=== PATIENT | female | born 1945 | race Caucasian/White ===

== ENCOUNTER → 2019-03-09 13:34 | Outpatient (CLI) | payer MEDICARE, SELFPAY ==
--- NOTE | 2019-03-09 | DI.CT.S_ITS ---
PROCEDURE: CT UE LT WO CON INDICATIONS: Primary osteoarthritis, left shoulder TECHNIQUE: Noncontrast 1-1.5 mm thick sections acquired from the acromioclavicular joint to the inferior scapula, with coronal and sagittal reformatting. COMPARISON: None. FINDINGS: Image quality: Excellent. Bones: Examination of left shoulder shows moderate to severe glenohumeral joint osteoarthritis with near-complete loss of joint space, extensive subchondral cysts and sclerosis and prominent inferior marginal osteophyte formation. Mild to moderate glenohumeral joint osteoarthritic changes are also seen. There is no shoulder fracture or dislocation. No suspicious intraosseous lesion. Visualized left upper to mid ribs are intact. Soft tissues: There is no abnormal soft tissue calcifications. No gross axillary lymphadenopathy. Small glenohumeral joint effusion is seen. No gross full-thickness rotator cuff tendon rupture. IMPRESSION: 1. Moderate to severe glenohumeral joint osteoarthritis and mild to moderate acromioclavicular joint osteophytes. No fracture or dislocation. No suspicious bony lesion. 2. Small joint effusion. No gross full-thickness rotator cuff tendon rupture. Dictated by: Montana Vazquez M.D. on 03/09/2019 at 15:26 Approved by: Montana Vazquez M.D. on 03/09/2019 at 15:28
== END ==
PROVIDERS: Visit Provider Orthopaedic Surgery
DX: M19.012 Primary osteoarthritis, left shoulder (principal); M25.412 Effusion, left shoulder
CPT/HCPCS: 73200

== ENCOUNTER 2019-06-18 05:44 | Inpatient (IN) | payer MEDICARE, SELFPAY ==
[2019-06-12 10:00] VITALS: BMI 27.0
[2019-06-18] VITALS (21 sets, daily range): BP systolic 80–116; BP diastolic 42–63; PULSE 75–103; RESP 10–25; TEMP 36.1–37.2; O2SAT 94–100; BMI 27.2
--- NOTE | 2019-06-18 06:00 | DI.RAD.S_ITS ---
PROCEDURE: XR SHOULDER LT 1V INDICATIONS: post op TECHNIQUE: Single views of the shoulder were acquired. COMPARISON: None. FINDINGS: Expected alignment of left shoulder arthroplasty. Overlying soft tissue postsurgical changes, and drain. Hardware appears intact. IMPRESSION: Expected postsurgical appearance Dictated by: Jamison Bardales M.D. on 06/18/2019 at 13:31 Approved by: Jamison Bardales M.D. on 06/18/2019 at 13:32
[2019-06-18] MEDS: PREGABALIN 75 MG CAPSULE PO (07:07)
[2019-06-18] MEDS: ACETAMINOPHEN 325 MG TABLET 975 MG PO ×3 (07:07→20:39)
--- NOTE | 2019-06-18 07:35 | PM.PREOP ---
Pre-operative Note Interval Note History & Physical reviewed/Exam performed by Physician: Yes Changes to H&P: No
[2019-06-18] MEDS: LACTATED RINGERS 1,000 ML 42 ML IV ×2 (07:55→09:20)
[2019-06-18] MEDS: MIDAZOLAM 2 MG/2 ML VIAL IV (07:59)
--- NOTE | 2019-06-18 08:09 | SUR.PREOP ---
Block start time [0759] . Monitoring initiated and maintained throughout procedure. Oxygen and medications given per anesthesiologist instructions. Patient remained stable throughout procedure, no adverse reactions noted. Block end time [0808].
[2019-06-18] MEDS: CEFAZOLIN 2 GM/100 ML FROZ.PIGGY IV (08:14)
[2019-06-18] MEDS: TRANEXAMIC ACID 1,000 MG VIAL 2000 MG INJ ×2 (08:30→09:33)
--- NOTE | 2019-06-18 08:42 | SUR.OPER ---
Beach chair with Rogelion/Milagros shoulder positioner. Lower body on padded OR bed. Head in foam padded head cradle, secured with straps. Non-operative arm secured <90 degrees abduction. Pillow under knees. Safety belt at thigh. Cloth tape over blanket over lower legs. Gel pad under heels.
[2019-06-18] MEDS: THROMBIN (RECOMBINANT) 5,000 UNIT VIAL 5000 UNIT TOP (09:00)
[2019-06-18] MEDS: BUPIVACAINE 0.5% W/ EPI (PF) 10 ML VIAL 30 ML INJ (09:12)
--- NOTE | 2019-06-18 10:13 | P.OP_ITS ---
Operative Date/Time/Diagnoses Date of procedure: 06/18/19 Time of procedure: 09:50 Pre-op diagnosis: Left shoulder osteoarthritis Post-op diagnosis: same Procedure & Clinicians Procedure: Left total shoulder replacement Same procedure as scheduled: Yes Indications: The patient has had progressively worsening left shoulder pain with radiographic changes consistent with arthritis. Non-operative management has failed and the patient has requested total shoulder replacement. The risks, benefits and alternatives to surgery were discussed with the patient prior to proceeding. Risks discussed included, but were not limited to, failure to relieve pain, stiffness, infection, nerve damage, deep venous thrombosis, pulmonary embolism, stroke, coma, heart attack, permanent paralysis and , as well as the potential need for eventual revision of the prosthetic. Surgeon: Domingo Sanchez Learning Operations Specialist: Ck Hoang Click Yes if Unassisted: No Anesthesia Type: General, Peripheral nerve block and Local Operative Notes Findings: Severe arthritis of the left shoulder with cystic change in the subchondral bone of the glenoid and osteoporotic bone. Closure Type: primary Specimen(s): none sent Prosthetic devices, grafts, tissues, transplants, or devices: Implants used in this procedure were manufactured by the [employer] and included an Altivate short stem total shoulder system with a size 46 mm pegged all polyethylene E plus glenoid, a 12 mm humeral stem, a 48 mm x 18 mm offset humeral head and a neutral humeral neck. Applied: implant(s) Estimated Blood Loss (mL): 250 Blood products transfused: none Procedure in detail: The patient was seen in the pre-operative area, where the patient identified the left shoulder as the operative site and this was marked with my initials. The patient received pre-operative antibiotics, underwent an interscalene block, and was taken to the operating room and placed on the operative table in the supine position. After satisfactory anesthesia, a full ?time out? was performed. The patient was repositioned in the ?beach chair? position using a dedicated positioner. All pressure points were well padded, and the knees were slightly bent to prevent tension on the sciatic nerves. The left arm was prepared from the fingers to the base of the neck with ChloroPrep in the usual fashion and draped through sterile drapes. An approximately 15 cm incision was created, starting at the clavicle above the coracoid process and extended towards the deltoid insertion. The deltopectoral interval was used to access the shoulder. The cephalic vein was taken medially. A self retaining retractor was placed. The upper centimeter of the pectoralis major tendon was released. The ?three sisters? were identified and cauterized. The axillary nerve was palpated and protected throughout the case. The biceps was released from its groove and tenodesed over the top of the pectoralis major tendon. The subscapularis was released from the lesser tuberosity with a subscapularis peel and tagged for later repair. The shoulder was dislocated and a cutting guide was used for the proximal humeral osteotomy in 30 degrees of retroversion. A starter reamer was used followed by the cylindrical reamers. This continued in larger sizes in till cortical bite was achieved. Sequential broaching was then performed until a line to line fit with the reamer occurred. A proximal humeral protector was then placed. We then removed the self-retaining retractor and placed retractors to access the glenoid. The subscapularis was released with a ?360 degree release? with care being taken to protect the axillary nerve with the inferior portion of this procedure. The remnant of labrum and biceps stump were removed. The appropriate size reamer was chosen with the glenoid sizer, and the guide pin placed. The glenoid was appropriately reamed. The guide for the peripheral holes was used and the center hole enlarged. The trial glenoid was placed with good stability. We then cemented the final implant into place after irrigating the peg holes and drying them with thrombin-soaked Gelfoam. We returned our attention to the humerus, a trial humeral head was applied and a trial reduction performed. Stability was checked with 40% posterior translation with spontaneous reduction, external rotation to 45? with the subscapularis held in the repaired position and internal rotation to 70? in the ?scarecrow position?. This was felt to be satisfactory and the appropriate implants were opened. Five holes were drilled along the humeral osteotomy and #2 Ethibond sutures placed for eventual subscapularis repair. The humeral prosthetic was impacted into the humerus. The humeral head was applied when the stem was still slightly proud and impacted to both seat the head and fully seat the stem. The joint was relocated one final time. The joint was irrigated and the subscapularis repaired to the previously placed sutures using Parrish-Walter sutures. The top of the subscapularis was closed to the leading edge of the supraspinatus with a figure of 8 #2 Ethibond to close the rotator interval. A deep drain was placed and brought out supero-laterally. The deltopectoral interval was closed with interrupted 0 Vicryl. The subcutaneous layer was closed with 3-0 Vicryl, and the skin with a running 3-0 V-Lock suture and SteriStrips. An Aquacel Ag dressing was applied, the patient?s arm was placed in a sling, and the patient was taken to recovery having tolerated the procedure well. Complications: none Post-operative Condition: stable Disposition: PACU Plan for aftercare: The patient will be maintained on a standard total shoulder replacement protocol with passive range of motion limited to 90 degrees forward flexion, 0 degrees external rotation at the side, 0 degrees abduction and internal rotation to the body. The patient will receive aspirin and sequential compression devices for DVT prophylaxis. The patient will be discharged home when safe for the home environment, likely tomorrow.
--- NOTE | 2019-06-18 11:24 | SUR.PHASEI ---
pt transferred to acute care floor in stable condition, vss. pt alert and talking to rn during transport. Bedside report given to KATIUSKA Thakur upon arrival to pt room. Transferred care of pt to KATIUSKA Thakur at that time.
[2019-06-18] MEDS: CARBIDOPA-LEVODOPA 25/100 TABLET 1 EACH PO ×2 (11:47→18:40)
[2019-06-18] MEDS: LACTATED RINGERS 1,000 ML 125 ML IV ×2 (12:35→20:39)
--- NOTE | 2019-06-18 14:30 | PT.IIE ---
Current Diagnoses Primary osteoarthritis, left shoulder (06/18/19) Surgery Performed Operation Date: 06/18/19 07:45 Actual Procedures p Total Shoulder Arthroplasty(Left) - Domingo Sanchez MD Surgical History (Last Updated 06/13/19 @ 15:14 by Stacey Lucas RN) History of arthroplasty of right hip (Acute) History of bariatric surgery (Acute ~1999) History of bilateral cataract extraction (Acute) History of total hysterectomy with bilateral salpingo-oophorectomy (BSO) (Acute) Hx of appendectomy (Acute) Hx of cholecystectomy (Acute) Hx of lithotripsy (Acute) Hx of oral surgery (Acute) Hx of tonsillectomy (Acute) Medical History (Last Updated 06/13/19 @ 15:08 by Stacey Lucas RN) Abdominal hernia (Acute) Afib (Acute) Compression fracture of L1 vertebra (Acute) Diabetes (Acute) Easy bruisability (Acute) GERD (gastroesophageal reflux disease) (Acute) HTN (hypertension) (Acute) Kidney stones (Acute) Osteoarthritis (Acute) PAF (paroxysmal atrial fibrillation) (Acute ~03/2013) Parkinson's disease (Acute ~04/2019) Right femoral fracture (Acute ~2008) Right tibial fracture (Acute ~2006) Sleep apnea (Acute) Small bowel obstruction (Acute ~2017) Tinnitus (Acute) Physical Therapy Inpatient Evaluation/Re-Eval M1 PT/OT-IP Prior Functional Status Start: 06/18/19 12:21 Freq: NEEDED Status: Active Protocol: Document 06/18/19 14:25 [facility] (Rec: 06/18/19 19:14 [facility] [id number]) Medical Review Prior Functional Status Medical History Reviewed Yes Diet/Fluid Consistency Regular Communication WNL Mobility and Gait Pt was using cane to improve gait until franck started hurting last summer and couldn 't wt bear into LUE. Notes this makes her gait have more lat movemtn Activities of Daily Living and IADL's indep but does have someone come in to deep clean. Social History Household Members none Living Arrangements House Number of Floors (Floors) One Floor Number of Stairs To Enter/Railing? 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 (Rec: 06/18/19 19:14 [facility] [id number]) Physical Therapy Current Condition Current Condition Evaluation Date 06/18/19 Treatment Diagnosis L TSA Precautions Shoulder Precautions Sling,PROM,Internal Rotation to Body,No External Rotation, No Abduction,Forward Flexion to 90 degrees Weight Bearing Status Weight Bearing Status Non-Weight Bearing M3 PT-IP Subjective Start: 06/18/19 12:21 Freq: NEEDED Status: Active Protocol: Document 06/18/19 14:25 [facility] (Rec: 06/18/19 19:14 [facility] [id number]) Subjective Physical Therapy Visit Type Type Initial Evaluation Visit Start Time 13:52 Visit Stop Time 14:25 Total Visit Minutes 33 Number of EMOTIONAL SUPPORT TEACHER Visits 0 Therapy Pain Assessment Pain Present Pain Present Denied Pain Location LT shoulder Intensity 0 Scale Used Numeric (1 - 10) M4 PT-IP Mobility and Gait Start: 06/18/19 12:21 Freq: NEEDED Status: Active Protocol: Document 06/18/19 14:25 [facility] (Rec: 06/18/19 19:14 [facility] [id number]) PT-Bed Mobility Assessment Supine to Sit Supine to Sit Standby Assistance,Head of Bed Elevated Sit to Supine Sit to Supine Standby Assistance,Head of Bed Elevated Scooting Scooting to Edge of Bed Standby Assistance Scooting Up and Down in Bed Standby Assistance PT-Transfer Assessment Sit to and From Stand Sit to and from Stand Standby Assistance,Use of Upper Extremities Equipment Transfer Assistive Device Gait Belt Comments Mobility Comments Pt stood to amb. She stood for extended time for adjustment of sling. Pt edcuated on proper position and assisted in repositioning Gait Assessment Gait Gait Assistance Required: Standby Assistance Distance (Feet) 100 Assistive Devices Assistive Device Gait Belt Gait Deviations General Gait Pattern Decreased Stride Length, Lateral Trunk Lean Factors Limiting Gait Function Factors Limiting Gait Function Decreased Strength,Poor Balance Comments Gait Comments Pt has slight leg length discrepancy which was notable during gait. She was overall steady throughout amb in room but does have lat leaning during gait. PT-Balance Assessment Sitting Balance and Reactions Static Sitting Balance Ability Normal Dynamic Sitting Balance Ability Normal Standing Balance and Reactions Static Standing Balance Ability Fair Dynamic Standing Balance Ability Fair M5 PT-IP Objective Assessments Start: 06/18/19 12:21 Freq: NEEDED Status: Active Protocol: Document 06/18/19 14:25 [facility] (Rec: 06/18/19 19:14 [facility] [id number]) Orientation Orientation/Cognition Level of Alertness Alert Language Function Ability No Deficits Noted Safety Awareness Understands Safety Issues Memory Description No Deficits Noted Gross Range of Motion Upper Extremity ROM Assessment Left Impaired M6 PT-IP Treatment Start: 06/18/19 12:21 Freq: NEEDED Status: Active Protocol: Document 06/18/19 14:25 [facility] (Rec: 06/18/19 19:14 [facility] [id number]) Physical Therapy Treatment Education Education Provided Precautions,Safety M7 PT-IP Assessment and Plan Start: 06/18/19 12:21 Freq: NEEDED Status: Active Protocol: Document 06/18/19 14:25 [facility] (Rec: 06/18/19 19:14 [facility] [id number]) PT Summary Assessment and Plan Potential Rehabilitation Potential Excellent Status of Condition at Evaluation Evolving Summary Impairments Pain,ROM,Strength,Balance,Bed Mobility,Transfers,Gait, Activity Tolerance Assessment Summary Pt presents day of L TSA with no sensation to LUE yet. She prepared by practiving activiites with one arm at home prior to surgery and has ADA toilet set up. She has help from neighbors and friends set up and plans to go home indep. She was very motivated and cooperative with therapy and is likey to progress well in order to be safe to return home after further PT for education. Goals Bed Mobility Goal Independent Transfer Goal Independent Gait Goal Independent Gait Distance 150ft Other Goals up./down 12 stairs with rail SBA Days to Meet Goals 3 Frequency of Treatment Frequency Of Treatment Twice a Day Treatment Plan Physical Therapy Treatment Plan Bed Mobility Training,Transfer Training,Gait Training, Therapeutic Exercise,Balance Retraining,Post Op Education, Neuromuscular Re-ed Other Recommendations and Next Treatment stairs, functional amb, edu of Focus sling use Recommendations To Nursing Amount of Assist Needed Standby Assistance Discharge Recommendations PT Discharge Recommendations Home with Assistance, Outpatient PT Transportation Needs at Discharge Private Vehicle
[2019-06-18] MEDS: DOCUSATE 100 MG CAPSULE PO (20:39)
--- NOTE | 2019-06-18 22:37 | PC.NURSE ---
Patient A/Ox4, room air, no complaints of pain. Able to ambulate 1 person assist to bathroom. Tolerated dinner. Reports some acid reflux. Shoulder incision is original aquacel dressing, clean, dry and intact.
[2019-06-18] MEDS: OXYCODONE IR 10 MG TABLET PO (23:22)
[2019-06-19] MEDS: HYDROMORPHONE 0.5 MG INJ IV ×4 (00:08→05:55)
[2019-06-19] MEDS: OXYCODONE IR 10 MG TABLET PO ×3 (02:07→10:19)
[2019-06-19 03:25] VITALS: BP 122/60; PULSE 85; RESP 18; TEMP 37.2; O2SAT 99
--- NOTE | 2019-06-19 04:37 | PC.NURSE ---
Called Dr. Dobbins at [phone] due to patient condition. Patient has pain 7-9/10 after pain medication administration and is restless, stiff/rigid and unable to sleep. Dr. Dobbins stated to give the patient the ordered 0.5 Hydromorphone every hour as needed. No new medication orders given.
[2019-06-19 05:36] LABS: Hemoglobin 9.6 g/dL (12.0-16.0); Mean Corpuscular HGB Conc 33.2 % (30-36); Mean Corpuscular Hemoglobin 29.1 PG (26-34); Mean Corpuscular Volume 87.7 fL (80-100); Platelet Count 138 X10^3/uL (150-400); White Blood Cell Count 7.7 X10^3/uL (4.5-11.0)
[2019-06-19] MEDS: TRAMADOL 50 MG TABLET PO (06:39)
[2019-06-19] MEDS: CARBIDOPA-LEVODOPA 25/100 TABLET 1 EACH PO (06:39)
--- NOTE | 2019-06-19 07:38 | PM.DS.1 ---
History of Present Illness History of Present Illness Date Patient Seen: 06/19/19 Time Patient Seen: 07:38 Chief complaint: [id number] Left Total Shoulder Arthroplasty Narrative: The history and physical are contained in the chart in a previously completed note. Please refer to that note for this information. Discharge Providers Provider Date of admission: 06/18/19 05:44 Discharge Date: 06/19/19 Primary care physician: Dave Ralph MD Consults: 06/18/19 11:32 Consult to Discharge Planning Routine Comment: Consult to Physical Therapy Evaluate & Treat Comment: PROM 90 FF, 0 ER, 0 ABD, IR to body. Pendulums. Physician Instructions: Evaluate and Treat Discharge provider: Domingo Sanchez MD Summary Hospital Course Discharge Diagnosis: 1. Left shoulder arthritis 2. Post hemorrhagic anemia Hospital Course: The patient was admitted to the hospital and taken directly to the operating room on June 18, 2019. She underwent a left total shoulder replacement without complications. She had some difficulty with postoperative pain management overnight but on postoperative day 1 she appeared to be quite comfortable. It is likely she will be ready for discharge later today. Status at Discharge Cognitive/behavioral status at discharge: oriented Functional status at discharge: independent ambulation Overall status at discharge: patient is progressing back to baseline Time Spent with Patient Time spent: Less than 30 minutes Exam Vital Signs (past 8 hours): - 06/19/19 03:25 Temperature 98.9 F Pulse Rate 85 Respiratory Rate 18 Blood Pressure 122/60 Pulse Oximetry 99 Oxygen Delivery Method Room Air Oxygen Flow Rate 0 Narrative Exam Narrative: Left shoulder wound is dressed with no drainage on the bandage. Light touch is intact in the radial, ulnar, median, muscular cutaneous and axillary nerve distribution. She can extend her thumb, abduct her thumb, abduct her fingers, fire her biceps and deltoid. Objective Labs Result Diagrams: 06/19/19 05:12 Labs: Laboratory Results - last 24 hr 06/19/19 05:12 WBC 7.7 RBC 3.30 L Hgb 9.6 L Hct 29.0 L MCV 87.7 MCH 29.1 MCHC 33.2 RDW 14.0 Plt Count 138 L Discharge Plan Discharge Plan Patient Disposition: Home Discharge orders & Medications Prescriptions: New acetaminophen 325 mg Tablet 975 mg PO TID 30 Days Qty: 270 RF: 0 hydromorphone 2 mg Tablet 2 mg PO Q3H PRN (Reason: Pain, Severe (7-10)) Qty: 30 RF: 0 oxycodone 5 mg Tablet 5 mg PO Q4H PRN (Reason: Pain, Moderate (4-6)) Qty: 50 RF: 0 Continued tramadol 50 mg Tablet 50 mg PO QID PRN (Reason: Pain) RF: 0 carbidopa-levodopa 25-100 mg Tablet 1 tab PO TID RF: 0 Xarelto 20 mg Tablet 20 mg PO DAILY RF: 0 lisinopril 10 mg Tablet 10 mg PO BEDTIME RF: 0 Follow up/Referrals: Dave Ralph MD [Primary Care Provider] - Domingo Sanchez MD [Physician] - 2 Weeks Discharge Health Status Multidrug resistant organism: No MDRO Diet/Activity/Treatments Diet: Diet as Tolerated and Regular Activity: You may use your left hand in front of your body below shoulder level. Keep the arm in a sling except for hygiene, eating and use of a computer or reading. Cold/Heat Therapy: Apply ice to the left shoulder for 15 minutes every hour as needed for pain control. Skin/Wound/Dressing Care Report to your healthcare provider any signs of infection, such as:: chills, fever, night sweats, increased pain, unusual drainage and unusual redness Dressing: Leave the dressing intact until your follow-up visit. You may shower with the dressing in place. If the central strip of the dressing becomes saturated with either water or blood, please call the office to have it evaluated. Visit Report/Discharge Packet Instructions: How to Prevent Falls, DI for Postoperative Pain, DI for Prescription Opioid Use, DI for Shoulder Replacement Stand Alone Forms: Surgery Discharge Visit Report Forms: Stroke Signs & Symptoms Discharge Data Primary Care Provider: Dave Ralph Quality VTE Deep Vein Thrombosis/Pulmonary Embolism Present on Admission: No
[2019-06-19 08:00] VITALS: BP 101/52; PULSE 88; RESP 16; TEMP 36.8; O2SAT 90
[2019-06-19] MEDS: RIVAROXABAN 10 MG TABLET 20 MG PO (08:24)
[2019-06-19] MEDS: ACETAMINOPHEN 325 MG TABLET 975 MG PO (08:24)
[2019-06-19] MEDS: DOCUSATE 100 MG CAPSULE PO (08:26)
[2019-06-19] MEDS: HYDROMORPHONE 2 MG TABLET PO ×2 (08:26→12:16)
--- NOTE | 2019-06-19 09:30 | PT.IPTN ---
Current Diagnoses Primary osteoarthritis, left shoulder (06/18/19) Surgery Performed Operation Date: 06/18/19 07:45 Actual Procedures p Total Shoulder Arthroplasty(Left) - Domingo Sanchez MD Physical Therapy Treatment Note M2 PT-IP Current Condition Start: 06/18/19 12:21 Freq: NEEDED Status: Active Protocol: Document 06/18/19 14:25 LRH (Rec: 06/18/19 19:14 LR[facility] [email or web address]) Physical Therapy Current Condition Current Condition Evaluation Date 06/18/19 Treatment Diagnosis L TSA Precautions Shoulder Precautions Sling,PROM,Internal Rotation to Body,No External Rotation, No Abduction,Forward Flexion to 90 degrees Weight Bearing Status Weight Bearing Status Non-Weight Bearing M3 PT-IP Subjective Start: 06/18/19 12:21 Freq: NEEDED Status: Active Protocol: Document 06/19/19 09:30 AW (Rec: 06/19/19 10:36 AW [email or web address]) Subjective Physical Therapy Visit Type Type Treatment Note Visit Start Time 08:54 Visit Stop Time 09:24 Total Visit Minutes 30 Number of ENVIRONMENTAL HEALTH TECHNOLOGIST Visits 0 Physical Therapy Visit Comments Patient Comments Pt willing to participate with PT Patient Goals To be able to 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 Therapy Pain Assessment Pain When Pain Assessed At Rest Pain Present Pain Present Pain Reported Location Back Intensity 5 Scale Used Numeric (1 - 10) Pain Management Techniques Apply Cold,Timing of Activity with Medications M4 PT-IP Mobility and Gait Start: 06/18/19 12:21 Freq: NEEDED Status: Active Protocol: Document 06/19/19 09:30 AW (Rec: 06/19/19 10:36 AW [email or web address]) PT-Bed Mobility Assessment Supine to Sit Supine to Sit Standby Assistance,Head of Bed Elevated Sit to Supine Sit to Supine Standby Assistance,Head of Bed Elevated Scooting Scooting to Edge of Bed Standby Assistance Scooting Up and Down in Bed Standby Assistance PT-Transfer Assessment Sit to and From Stand Sit to and from Stand Standby Assistance,Use of Upper Extremities Equipment Transfer Assistive Device Gait Belt Transfers Transfer Destination Bed Transfer Technique pt ambulated without AD Transfer Ability Level of Assist Standby Assistance Comments Mobility Comments Pt completed supine to sit and sit to stand SBA. She ambulated to the sink and had one lateral LOB requiring no assist to recover. Readjusted sling with mirror for visual feedback with pt demonstrating good understanding of proper fit. After gait training, pt returned to bed SBA. Gait Assessment Gait Gait Assistance Required: Standby Assistance Distance (Feet) 300 Assistive Devices Assistive Device Gait Belt Factors Limiting Gait Function Factors Limiting Gait Function Decreased Strength,Poor Balance Comments Gait Comments Pt has recently-diagnosed Parkinson's disease as well as leg length discrepancy. Leg lengths appear to affect her gait more than rigidity which seems minimal at this stage. Pt required SBA and encouragement to let her RUE swing naturally. Stair Climbing Assessment Evaluation Level of Assist On Stairs Standby Assistance Devices Stair Climbing Assistive Devices Left Railing,Right Railing Technique/Endurance Stair Climbing Direction Ascend and Descend Stair Climbing Technique Step to Step Number of Steps Climbed 3 Stair Climbing Set # Repetitions (reps) 4 Comments Stair Climbing Comments Pt has B rails at home so can use her RUE for balance up and down. M5 PT-IP Objective Assessments Start: 06/18/19 12:21 Freq: NEEDED Status: Active Protocol: Document 06/18/19 14:25 LR (Rec: 06/18/19 19:14 LR [email or web address]) Orientation Orientation/Cognition Level of Alertness Alert Language Function Ability No Deficits Noted Safety Awareness Understands Safety Issues Memory Description No Deficits Noted Gross Range of Motion Upper Extremity ROM Assessment Left Impaired M6 PT-IP Treatment Start: 06/18/19 12:21 Freq: NEEDED Status: Active Protocol: Document 06/19/19 09:30 AW (Rec: 06/19/19 10:36 AW [email or web address]) Physical Therapy Treatment Education Education Provided Precautions,Safety Other Treatments Other Treatment Performed Reviewed shoulder precautions, proper fit of sling, and tips for ADL's. Left pt with handout describing same. M7 PT-IP Assessment and Plan Start: 06/18/19 12:21 Freq: NEEDED Status: Active Protocol: Document 06/19/19 09:30 AW (Rec: 06/19/19 10:36 AW [email or web address]) PT Summary Assessment and Plan Summary Impairments Pain,ROM,Strength,Balance,Bed Mobility,Transfers,Gait, Activity Tolerance Progress Towards Goals Progressing Toward Goals Assessment Summary Pt has progressed toward goals . She states neighbors and friends will be home to help her if needed but no one is planning to stay with her. Reinforced need for sling at all times. PT recommends discharge to home with assistance and outpatient PT once medically cleared. Goals Bed Mobility Goal Independent Transfer Goal Independent Gait Goal Independent Gait Distance 150ft Other Goals up./down 12 stairs with rail SBA Days to Meet Goals 1 Frequency of Treatment Frequency Of Treatment Twice a Day Treatment Plan Physical Therapy Treatment Plan Bed Mobility Training,Transfer Training,Gait Training, Therapeutic Exercise,Balance Retraining,Post Op Education, Neuromuscular Re-ed Other Recommendations and Next Treatment stairs, functional amb, edu of Focus sling use Recommendations To Nursing Amount of Assist Needed 1 Person Assist Discharge Recommendations PT Discharge Recommendations Home with Assistance, Outpatient PT Transportation Needs at Discharge Private Vehicle
--- NOTE | 2019-06-19 11:53 | CM.DANOTE ---
DCP: Case received, EMR reviewed and met with patient. Introduced self and role. Was able to meet with patient in her room to obtain information regarding baseline activity and living situation. DCP assessment completed with information currently available. Patient is a 74 year old female who admitted yesterday morning to the care of the orthopedic team. PCP: Dr. Ralph. Payer: confirmed: Medicare/[employer]. Patient came to the hospital for planned surgical procedure. She had left total shoulder arthroplasty done. Met with patient in her room. She is alert and oriented. She resides in [facility]. She has a friend named Sheridan Eisenberg who will be helping her out at home. She mentioned that she may want in home assistance. Asked her if she needed any resources, and she mentioned that she is familiar with the resources in her area. Asked patient if she wanted home health, and she stated, not now, but I might later. Let her know that at her next ortho appointment, if she feels that she needs it, she can discuss with them. Patient also stated that her insurance covers some home help, and she will look into it. P: Patient has discharge orders, and will be going home. She was ambulating in the hallway with Roberta Galindo RN/Caustic Strength Inspector
--- NOTE | 2019-06-19 13:31 | PC.NURSE ---
Addendum entered by Katherine Long R.N. 06/19/19 14:24: left shoulder aquacel dressing CDI, old hemovac site dressing CDI, pt wore arm sling throughout shift. CMS+, radial pulse strong, moderate railroad carman. Pt reported 4-9/10 pain sharp and stabbing to left shoulder incision, became dull sharpness and stabbing when pain 4/10. Pt reports more controlled pain level with combination of Dilaudid and Oxycodone. Discharge summary reviewed with pt and her neighbor Leora at bedside. Prescriptions for Hydromorphone and Oxycodone given to pt who will have filled at [facility]. Pt states having all her belongings. Pt reported that her neighbor Leora will be a resource person and her back up is her neighbor across the street Dianne. Pt states she has been managing at home with basically 1 arm due to left shoulder pain prior to surgery. Has prepared meals ahead of time, has a person coming on for 4 hours to help, has meal delivery service starting on the . Pt states she is prepared to be at home by herself and will ask for help from neighbors and friends. Pt left unit via wheelchair in no distress at 1417 with TELEGRAPH EQUIPMENT MAINTAINER escort. Her neighbor Leora was present to drive pt home. Original Note: Day Shift- Hemovac removed around 1320 by student services counselor Anila and her instructor. Reported pt tolerated well, gauze and tegaderm applied over site. PIV removed by nursing home admissions director Libbie as well without difficulty.
== END 2019-06-19 14:17 | disposition home or self-care (01) | DRG 483 ==
PROVIDERS: Admitting Provider Orthopaedic Surgery; PCP Internal Medicine; Referring Provider Orthopaedic Surgery; Visit Provider Orthopaedic Surgery
PROC: 0RRK0JZ Replacement of Left Shoulder Joint with Synthetic Substitute, Open Approach (ICD-10-PCS; CPT 23472; principal; 2019-06-18 07:45)
DX: M19.011 Primary osteoarthritis, right shoulder (principal); I48.0 Paroxysmal atrial fibrillation; Z79.01 Long term (current) use of anticoagulants; I10 Essential (primary) hypertension; G47.33 Obstructive sleep apnea (adult) (pediatric); G20 Parkinson's disease; K21.9 Gastro-esophageal reflux disease without esophagitis; M81.0 Age-related osteoporosis without current pathological fracture
CPT/HCPCS: 36415; 64415; 73020; 85027; 97116; 97162; 97530; C1776; J0690; J1100; J1170; J2250; J2405; J2704; J3010

== ENCOUNTER 2022-08-05 09:03 | Inpatient (IN) | payer MEDICARE, SELFPAY ==
[2019-06-18 11:49] VITALS: BMI 27.2
[2022-07-22 12:35] VITALS: BMI 28.2
[2022-08-05] VITALS (12 sets, daily range): BP systolic 96–116; BP diastolic 41–77; PULSE 72–98; RESP 16–20; TEMP 35.8–36.8; O2SAT 93–98; BMI 28.2
--- NOTE | 2022-08-05 06:00 | DI.RAD.S_ITS ---
PROCEDURE: XR SHOULDER RT MIN 2V INDICATIONS: prosthesis placement TECHNIQUE: 1 views of the shoulder were acquired. COMPARISON: [facility], CT, CT UPPER EXTREMITY RIGHT WITHOUT CONTRAST, 07/09/2022, 10:34. FINDINGS: Bones: Right shoulder reverse arthroplasty. No dislocations. Prior fracture of the proximal humerus. No suspicious bony lesions. Visualized ribs appear intact. Soft tissues: No suspicious soft tissue calcifications. IMPRESSION: Right shoulder reverse arthroplasty projects in the expected location. Prior proximal right humerus fracture. Dictated by: Rodrick Pelaez M.D. on 08/05/2022 at 14:03 Approved by: Rodrick Pelaez M.D. on 08/05/2022 at 14:05
[2022-08-05] MEDS: PREGABALIN 75 MG CAPSULE PO (09:43)
[2022-08-05] MEDS: LACTATED RINGERS 1,000 ML 42 ML IV ×2 (09:43→12:11)
[2022-08-05] MEDS: ACETAMINOPHEN 325 MG TABLET 975 MG PO ×2 (09:43→14:35)
[2022-08-05 09:56] LABS: COVID19 -Nasal RAPID Negative (Negative)
--- NOTE | 2022-08-05 10:20 | P.HP_ITS ---
History of Present Illness History of Present Illness Date Patient Seen: 08/05/22 Time Patient Seen: 10:20 Chief complaint: Right Reverse TSA w/Bicep Tenodesis Narrative: This is a 77-year-old female who presents for reverse for fracture. She had a ground level fall sustaining a fracture of her right shoulder. She is had some improvement in pain but no improvement with her range of motion since I last saw her. [facility] Medical History (Updated 07/22/22 @ 13:08 by Stacey Lucas RN) Abdominal hernia Afib Compression fracture of L1 vertebra Diabetes Easy bruisability GERD (gastroesophageal reflux disease) HTN (hypertension) Kidney stones Osteoarthritis PAF (paroxysmal atrial fibrillation) (~03/2013) Parkinson's disease (~04/2019) Right femoral fracture (~2008) Right humeral fracture (06/22/22) Right tibial fracture (~2006) Sleep apnea Small bowel obstruction (~2017) Tinnitus Surgical History (Updated 07/22/22 @ 12:51 by Stacey Lucas RN) History of arthroplasty of right hip History of bariatric surgery (~1999) History of bilateral cataract extraction History of open reduction and internal fixation (ORIF) procedure History of total hysterectomy with bilateral salpingo-oophorectomy (BSO) History of total replacement of left shoulder joint (06/18/19) Hx of appendectomy Hx of cholecystectomy Hx of lithotripsy Hx of oral surgery Hx of tonsillectomy Social History household members: none Smoking Status: Former smoker alcohol intake: former Meds Home Medications and Allergies Home Medications Medication Instructions Recorded Confirmed Type carbidopa 25 mg-levodopa 100 mg 1 tab PO TID Parkinson's 06/12/19 08/05/22 History tablet lisinopril 10 mg tablet 5 mg PO QAM 06/12/19 08/05/22 History acetaminophen 500 mg tablet 1,000 mg PO Q6H PRN pain 07/22/22 08/05/22 History amantadine HCl 100 mg tablet 100 mg PO TID 07/22/22 08/05/22 History rasagiline 1 mg tablet (Azilect) 1 mg PO DAILY Parkinson's 07/22/22 08/05/22 History Allergies Allergy/AdvReac Type Severity Reaction Status Date / Time adhesive tape Allergy Severe Blisters Verified 08/05/22 09:29 Iodinated Contrast Media Allergy Mild Asthma Verified 03/30/23 09:29 symptoms - Topical ok Beta-Blockers AdvReac Severe Extreme Verified 08/05/22 09:29 (Beta-Adrenergic Bloc fatigue NSAIDS (Non-Steroidal AdvReac Advised Verified 08/05/22 09:29 Anti-Inflamma not to take r/t biatric surgery Review of Systems Review of Systems ROS: Yes All systems reviewed with the patient and are negative except as otherwise documented Exam Vital Signs (past 8 hours): - 08/05/22 09:36 Temperature 97.1 F L Pulse Rate 79 Respiratory Rate 20 Blood Pressure 116/63 Pulse Oximetry 98 Oxygen Delivery Method Room Air Oxygen Delivery Method Room Air Narrative Exam Narrative: HEENT: Head atraumatic eyes anicteric moist mucous membranes Cardiovascular: Palpable peripheral pulses extremities are warm and well perfused Respiratory: Breathing comfortably on room air Psychiatric: Appropriate mood and affect Neuro: No acute deficits Musculoskeletal: Exam of right upper extremity demonstrates bruising, 10? forward elevation, 10? external rotation. Sensation intact in median, radial, ulnar nerve distributions. 2+ radial pulse with brisk capillary refill less than 2 seconds. Objective Labs Labs: Laboratory Results - last 24 hr 08/05/22 09:23 SARS-CoV-2 (PCR) Negative Assessment & Plan Assessment & Plan narrative: Assessment: 77-year-old female with right proximal humerus fracture Plan: Discussed performing reverse total shoulder arthroplasty for fracture given her age, osteoporosis and pre-existing osteoarthritis. Risks and bene fits of surgery were discussed again including the risk of infection, damage to internal structures, bleeding, nerve injury, instability, need for revision surgery, blood clots, anesthesia and . No guarantees were made regarding outcomes. Patient expressed understanding and accepted these risks and wished to go forward with surgery and consent was signed. She expressed understanding with these risks and consent was signed.
[2022-08-05] MEDS: CEFAZOLIN 2 GM/100 ML PREMIX 100 ML IV (10:35)
--- NOTE | 2022-08-05 10:35 | SUR.PREOP ---
Block start time [1024] . Time-out performed. Monitoring initiated and maintained throughout procedure. Oxygen and medications given per anesthesiologist instructions. Patient remained stable throughout procedure, no adverse reactions noted. Block end time [1030].
--- NOTE | 2022-08-05 11:06 | SUR.OPER ---
Beach chair on padded OR bed. Head on gel donut secured with tape over gauze. Non-operative arm secured <90 degrees abduction on padded arm board. Pillow under knees. Safety belt at thigh. Cloth tape over blanket over lower legs. Gel pad under heels.
[2022-08-05] MEDS: BUPIVACAINE 0.25% (PF) 60 ML, EPINEPHrine 0.3 MG INJ (11:54)
[2022-08-05] MEDS: TRANEXAMIC ACID 1,000 MG VIAL 1000 MG INJ ×2 (11:57→13:15)
--- NOTE | 2022-08-05 12:31 | SUR.OPER ---
Beach chair with Schlein shoulder positioner. Lower body on padded OR bed. Gel pad under buttocks. Head in foam padded head cradle, secured with straps. Non-operative arm secured <90 degrees abduction, secured with strap across torso. 2 Pillows under knees. Gel pad under heels and floated. Safety belt at thigh. Cloth tape over blanket over lower legs. Operative arm in control of the Surgeon.
--- NOTE | 2022-08-05 13:05 | PM.OP.1 ---
Operative Date/Time/Diagnoses Date of procedure: 08/05/22 Time of procedure: 13:05 Pre-op diagnosis: Right proximal humerus fracture with pre-existing osteoarthritis Post-op diagnosis: same Procedure & Clinicians Procedure: Reverse total shoulder arthroplasty for right proximal humerus fracture Same procedure as scheduled: Yes Indications: Indications: This is a a 77-year-old female who has a right proximal humerus fracture and pre-existing osteoarthritis. Symptoms prior to her fracture have been present for years, insidious onset. Patient has failed conservative therapy including injections, physical therapy, anti-inflammatories and activity modification. After extensive discussion in clinic, they wished to go forward with surgery. Risks and benefits were described including the risk of infection, bleeding, damage to internal structures including nerves. We also discussed the risk of failure of surgery and the need for revision surgery as well as the risk of anesthesia. The patient expressed understanding with these risks and wished to go forward with surgery. Surgeon: Bryce Knight Fabrication Engineer: Renata Alonso Anesthesia Type: General Operative Notes Findings: Proximal humerus fracture at the surgical neck. Some osteopenia and posterior glenoid wear Closure Type: primary Prosthetic devices, grafts, tissues, transplants, or devices: Tornier implants Base plate: standard 25 mm, 0 offset Glenosphere: Standard 36 mm Stem: Flex, size 2, set at angle B Tray: High offset, set at 12:00 p.m. Poly: 0 Blood products transfused: none Procedure in detail: Operative note: Patient was seen in the preoperative holding unit. The correct right shoulder was identified and marked with my initials. Again we discussed the risks and benefits of surgery and they wished to go forward with surgery. The patient was brought back to the operating room and placed supine on the operating table. Smooth endotracheal intubation was performed by anesthesia. All prominences were padded and they were placed into the beach chair position. Intravenous antibiotics were given. The right shoulder was then prepped with the standard sterile preparation and draping. A time-out was then performed in my initials were again identified on the correct shoulder. 1 g of IV tranexamic acid was given. A standard deltopectoral incision was made. Skin flaps were made. The cephalic vein was identified and retracted laterally. This was protected throughout the remainder of the case. Sharp dissection was made along the deltoid, subacromial and subcoracoid space to release adhesions. The conjoined tendon was identified and the axillary nerve was palpated and continuous using the tug test. It was protected throughout the remainder of the case. A brown retractor was placed underneath the deltoid muscle and a darach retractor underneath the conjoint tendon. The anterior circumflex artery and associated veins on the lower border of the subscapularis were identified and tied off using 0-Vicryl. The biceps tendon was identified in the bicipital groove. This was released from its sheath, and taken from its origin on the glenoid and tied into the pectoralis tendon for a solid tenodesis. We then began a lesser tuberosity osteotomy. The subscapularis was tagged with an Ethibond suture. A 360 degree circumferential release of the subscapularis was performed with protection of the axillary nerve. The coracohumeral ligament was released at the base of the coracoid. The coracoacromial ligament was left intact. The shoulder was then dislocated. Osteophytes were removed using combination of rongeur and osteotome. The rotator cuff was noted to be intact. An intramedullary guide was used set at version of 30?. Using an oscillating saw a conservative humeral head cut was made. Impaction reamers were reamed up to a size 2 stem set at angle B. A neck protector was placed. Attention was then turned to the glenoid. After retracting the humeral head posteriorly a circumferential release was performed of the capsule with protection of the axillary nerve. The labrum was then released starting at the biceps anchor and going around the rim a small amount of triceps was released from the inferior glenoid. A center guide pin was then placed using the guide, followed by Reamer. After adequate cartilage was removed the center drill hole was drilled and measured. The base plate was then implanted and screwed into place. The superior drill hole was drilled and filled in a nonlocking fashion, followed by the inferior in locking fashion, the posterior hole was also filled. A 36 standard glenosphere was then selected and screwed into place onto the base plate. Turning back to the humerus, the humeral head was delivered and trialed with a 0 poly with the base tray at high offset, set at 12:00 p.m.. The arm was taken through range of motion and this was felt to be stable. The trial was then removed and a dilute Betadine wash was then performed with 1 L of sterile saline. Before placing the final implant, drill holes were made in the bicipital groove for the subscapularis repair, and sutures were passed through the drill holes. The final stem with high offset tray was then impacted into the humerus. The shoulder was then reduced and again brought through range of motion and was felt to be stable. The interval was then closed using #2 Ethibond. The subscapularis was then repaired using a modified racking hitch with nice loupes. The deltopectoral interval was then closed with #2 Ethibond. The skin was closed with 2-0 PDS and Monocryl followed by Aquacel dressing. Patient was awoken from anesthesia and brought back to the postoperative recovery unit without issue. They were placed into a sling. Assisting participation: This operation could not have been safely performed (without compromising the technical results or length of the procedure) without the assistance of a skilled surgical appliances salesperson. The surgical appliances salesperson was medically necessary for proper positioning, retraction and manipulation of instruments, proper exposure, graft prep, and manipulation of tissue. Complications: none Post-operative Condition: stable Plan for aftercare: Postoperative instructions: Sling to remain on for 6 weeks. No external rotation past neutral for 6 weeks. Okay for him to come off her shower. Okay to shower over the Aquacel dressing. If any water gets underneath the dressing, remove the dressing. First postoperative visit in 2 weeks.
[2022-08-05] MEDS: fentaNYL 100 MCG/2 ML INJ 25 MCG IV ×2 (13:38→13:47)
[2022-08-05] MEDS: OXYCODONE IR 5 MG TABLET PO ×2 (13:41→20:46)
[2022-08-05] MEDS: ONDANSETRON 4 MG/2 ML INJ IV (13:42)
[2022-08-05] MEDS: AMANTADINE 100 MG CAPSULE PO ×2 (14:23→19:41)
[2022-08-05] MEDS: CARBIDOPA-LEVODOPA 25/100 TABLET 1 EACH PO ×2 (14:23→19:41)
--- NOTE | 2022-08-05 15:04 | PT-IP ANOTE ---
Pt reports her R shoulder pain is 12/10 and refuses physical therapy.
[2022-08-05] MEDS: OXYCODONE IR 10 MG TABLET PO (15:19)
[2022-08-05] MEDS: HYDROMORPHONE 0.5 MG INJ IV ×2 (17:06→19:41)
--- NOTE | 2022-08-05 19:57 | PC.NURSE ---
Pt arrived from PACU, VSS, afebrile on RA. Patient is crying and reports pain 12/10. MD notified in Surgery and patient able to become more comfortable with hydromorphone IV 0.5mg and oxycodone 10mg. She is able to eat dinner and void. Aquacel to R shoulder c/d/i She reports full sensation to R hand and fingers +CMS. Continuous monitoring.
[2022-08-06] MEDS: OXYCODONE IR 5 MG TABLET PO ×4 (00:44→07:50)
[2022-08-06 04:05] VITALS: BP 101/52; PULSE 91; RESP 17; TEMP 36.4; O2SAT 96
[2022-08-06] MEDS: ACETAMINOPHEN 325 MG TABLET 975 MG PO (05:25)
[2022-08-06 06:48] LABS: Hematocrit 28.8 % (36-46); Hemoglobin 9.7 g/dL (12.0-16.0); Mean Corpuscular HGB Conc 33.7 % (30-36); Mean Corpuscular Hemoglobin 28.2 PG (26-34); Mean Corpuscular Volume 83.7 fL (80-100); Platelet Count 179 X10^3/uL (150-400); Red Blood Cell Count 3.44 X10^6/uL (4.0-5.2); Red Cell Distribution Width 15.6 % (11.6-14.8); White Blood Cell Count 6.1 X10^3/uL (4.5-11.0)
[2022-08-06] MEDS: AMANTADINE 100 MG CAPSULE PO ×3 (08:36→21:19)
[2022-08-06] MEDS: CARBIDOPA-LEVODOPA 25/100 TABLET 1 EACH PO ×3 (08:36→21:19)
[2022-08-06 08:53] VITALS: BP 96/47; PULSE 94; RESP 14; TEMP 36.8; O2SAT 97
--- NOTE | 2022-08-06 09:00 | PT.IIE ---
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) Hx of appendectomy Hx of cholecystectomy Hx of lithotripsy Hx of oral surgery Hx of tonsillectomy Medical History (Last Reviewed 08/06/22 @ 09:33 by Maria Guadalupe Rueda PA-C) Abdominal hernia Afib Compression fracture of L1 vertebra Diabetes Easy bruisability GERD (gastroesophageal reflux disease) HTN (hypertension) Kidney stones Osteoarthritis PAF (paroxysmal atrial fibrillation) (~03/2013) Parkinson's disease (~04/2019) Right femoral fracture (~2008) Right humeral fracture (06/22/22) Right tibial fracture (~2006) Sleep apnea Small bowel obstruction (~2017) Tinnitus Physical Therapy Inpatient Evaluation/Re-Eval M1 PT/OT-IP Prior Functional Status Start: 08/05/22 14:40 Freq: NEEDED Status: Active Protocol: Document 08/06/22 14:44 LRN (Rec: 08/06/22 15:21 LRN [id number]) Medical Review Prior Functional Status Medical History Reviewed Yes Mobility and Gait Per pt, Gait in home sometimes with cane. Stairs ambulation to get into home: Side stepping up/down stairs on one set of stairs and use of railing on L side with 2 rails present. Activities of Daily Living and IADL's Per pt, Independent with limited use of RUE due to pt report of R shoulder fracture . Prior Functional Level (Other details) Per pt, independent with self care hygiene. Social History Household Members none Living Arrangements House Number of Floors (Floors) One Floor Number of Stairs To Enter/Railing? 5 steps with 1 rail on R side, and 5 steps with ezequiel railing Home Environment High Toilet,Tub/Shower,Bidet Home Equipment Quad Cane,Straight Cane, Bedside Commode,Shower Seat without Backrest,Hand Held Shower,Business Support Specialist,Grab Bars Near Toilet,Grab Bars In Shower Employment Status Retired Additional Social History Comment Adjustable bed. Gets out of bed on the L side with use of hand support. M2 PT-IP Current Condition Start: 08/05/22 14:40 Freq: NEEDED Status: Active Protocol: Document 08/06/22 14:44 LRN (Rec: 08/06/22 15:21 LRN [id number]) Physical Therapy Current Condition Current Condition Evaluation Date 08/06/22 Treatment Diagnosis R Proximal Humerus fx 06/22/22, s/p PO Day1 Reverse R TSA w/ Biceps tenodesis Onset Date 08/05/22 M3 PT-IP Subjective Start: 08/05/22 14:40 Freq: NEEDED Status: Active Protocol: Document 08/06/22 14:44 LRN (Rec: 08/06/22 15:21 LRN [id number]) Subjective Physical Therapy Visit Type Type Initial Evaluation Visit Start Time 08:18 Visit Stop Time 08:56 Total Visit Minutes 42 Physical Therapy Visit Comments Patient Comments Pt reports she has not had her Parkinson's medications, so she has a Parkinson's gait. States she has had her L shoulder replaced, so thinks she can manage at home, although admits she is having more pain with this shoulder than the last shoulder. Patient Goals Pt goal is to go home on day of discharge, but would not necessarily oppose [facility] care. Therapy Pain Assessment Pain When Pain Assessed At Rest Pain Present Pain Present Pain Reported Location Right Shoulder Intensity 6 Scale Used Numeric (0 - 10) Description Aching Pain Behaviors Wincing Pain Management Techniques Apply Cold,Timing of Activity with Medications M4 PT-IP Mobility and Gait Start: 08/05/22 14:40 Freq: NEEDED Status: Active Protocol: Document 08/06/22 14:44 LRN (Rec: 08/06/22 15:21 LRN [id number]) PT-Bed Mobility Assessment Rolling Level of Assist Minimal Assistance,1 Person Assistance Supine to Sit Supine to Sit Standby Assistance Sit to Supine Sit to Supine Minimal Assistance,1 Person Assistance Scooting Scooting to Edge of Bed Independent PT-Transfer Assessment Sit to and From Stand Sit to and from Stand Standby Assistance Equipment Transfer Assistive Device Bed Rail,Gait Belt Orthotic/Prosthetic Devices or Brace: Yes Transfers Transfer Destination Bed Transfer Technique Walked around bed and returned to bed Transfer Ability Level of Assist Standby Assistance,Contact Guard Assistance,Minimal Assistance Comments Mobility Comments Pt needed assist with transfers in various stages of the transfer. Pt moves slowly as expected due to shoulder pain. Gait Assessment Gait Gait Assistance Required: Minimum Assistance Distance (Feet) 10 Able to Maintain Weight Bearing Status Yes During Gait Assistive Devices Assistive Device Gait Belt Orthotic/Prosthetic Devices or Brace: No Gait Deviations General Gait Pattern Decreased Stride Length, Decreased Feet Clearance, Festinating,Flexed Trunk, Narrow Based Gait Factors Limiting Gait Function Factors Limiting Gait Function Decreased Activity Tolerance, Pain,Poor Balance Comments Gait Comments Pt ambulated with R arm in sling and hand held assist/GB for first 4', then remainder was with CGA/GB. Ambs with Parkinson's festinating gait. Pt moved very slowly and cautiously. Stair Climbing Assessment Comments Stair Climbing Comments Stair climbing was not assessed due to pt fatigue. PT-Balance Assessment Sitting Balance and Reactions Static Sitting Balance Ability Fair Dynamic Sitting Balance Ability Fair Standing Balance and Reactions Static Standing Balance Ability Fair Dynamic Standing Balance Ability Fair M5 PT-IP Objective Assessments Start: 08/05/22 14:40 Freq: NEEDED Status: Active Protocol: Document 08/06/22 14:44 LRN (Rec: 08/06/22 15:21 LRN [id number]) Orientation Orientation/Cognition Level of Alertness Alert Orientation Name,Month,Place,Situation Language Function Ability No Deficits Noted Safety Awareness Understands Safety Issues Memory Description No Deficits Noted Gross Range of Motion Upper Extremity ROM Assessment Right Impaired Impairments R arm in sling appropriate for S/P R TSA. R UE: Forearm supination ~10 deg's, pronation normal, Elbow flexion limited 20%. Lower Extremity ROM Assessment Right Impaired Impairments R knee flexion limited to 90 deg's. Strength Upper Extremity Strength Assessment Right Impaired Lower Extremity Strength Assessment Left Impaired Comments Strength Comments L UE/LE strength is generally 5/5. R UE not appropriate for testing due to s/p R TSA. R elbow, wrist and hand mobility is 2+/5. M6 PT-IP Treatment Start: 08/05/22 14:40 Freq: NEEDED Status: Active Protocol: Document 08/06/22 14:44 LRN (Rec: 08/06/22 15:21 LRN [id number]) Physical Therapy Treatment Exercises Exercises Ankle Pumps Education Education Provided Precautions Equipment Issued Equipment Type and Company Pt educated in release of velcro near neck for pt to dangle R UE, but to keep arm close and near body. Other Treatments Other Treatment Performed With R UE next to body: elbow flex/ext, forearm sup/pron, wrist flex/ext, hand open/ close - 1-2 reps. Codman's I/S. Pt shown how to passively move arm for dressing. The pt was returned to bed after ambulation with SCD's placed. Tray table was placed within reach for pt to complete breakfast items and call light and bed remote was placed within reach. M7 PT-IP Assessment and Plan Start: 08/05/22 14:40 Freq: NEEDED Status: Active Protocol: Document 08/06/22 14:44 LRN (Rec: 08/06/22 15:21 LRN [id number]) PT Summary Assessment and Plan Potential Rehabilitation Potential Good Status of Condition at Evaluation Evolving Summary Impairments Pain,ROM,Strength,Balance,Bed Mobility,Transfers,Gait Assessment Summary Pt is a 77 year old female who is s/p reverse TSA with biceps tenodesis. Post op notes indicate for 6 wks no ER > neutral, sling, can shower. Pt was not able to tolerate initial evaluation yesterday due to poor pain control, but today was able to tolerate mobilization out of bed and was able to walk around the bed with hand held assist and CGA with gait belt. She would benefit for safety using an assistive device to ambulate and would benefit from further training with gait. She was not able to tolerate activity of stair ambulation for training to get up/down stairs to get in/out of her home. I would recommend SNF for rehab at this time. If the pt is able to safely ambulate and go up/down stairs at her home tomorrow she might be a candidate for [facility] home. Goals Bed Mobility Goal Independent Transfer Goal Independent Gait Goal Independent Gait Distance 75-100' Days to Meet Goals 2 Frequency of Treatment Frequency Of Treatment Twice a Day Treatment Plan Physical Therapy Treatment Plan Bed Mobility Training,Transfer Training,Gait Training,Post Op Education,Discharge Planning,Hot or Cold Pack Other Recommendations and Next Treatment Gait with cane. Stair Focus ambulation. Continue assessment for independence with bed mobility and transfer for safe DC to home. Precautions Shoulder Precautions Sling,No External Rotation Recommendations To Nursing Amount of Assist Needed 1 Person Assist Discharge Recommendations PT Discharge Recommendations Home with Assistance,SNF Rehab Transportation Needs at Discharge Private Vehicle
--- NOTE | 2022-08-06 09:26 | PM.PNPO.1 ---
Subjective Subjective Interval history: Patient is awake lying in bed this morning. She states that she is extremely uncomfortable due to uncontrolled pain. Notes pain as 7/10 right now. She is unhappy that she is unable to have 10 mg of oxycodone at a time as this is what she was previously taking before surgery since sustaining her humeral fracture. Otherwise doing well. Plans to go home tomorrow due to availability of caregiver. Exam Vital Signs (past 8 hours): - 08/06/22 04:05 08/06/22 08:53 Temperature 97.5 F L 98.3 F Pulse Rate 91 H 94 H Respiratory Rate 17 14 Blood Pressure 101/52 L 96/47 L Pulse Oximetry 96 97 Oxygen Flow Rate 0 Oxygen Delivery Method Room Air Oxygen Flow Rate 0 Narrative Exam Narrative: Awake, alert, and oriented. Intraoperative right shoulder Aquacel clean, dry, and intact. Strength to distal right upper extremity intact. Sensation intact to right upper extremity. Tender to palpation over entire humerus. Objective Labs 08/06/22 06:35 Labs: Laboratory Results - last 24 hr 08/05/22 08/06/22 09:23 06:35 WBC 6.1 RBC 3.44 L Hgb 9.7 L Hct 28.8 L MCV 83.7 MCH 28.2 MCHC 33.7 RDW 15.6 H Plt Count 179 SARS-CoV-2 (PCR) Negative [facility] Medical History Abdominal hernia Afib Compression fracture of L1 vertebra Diabetes Easy bruisability GERD (gastroesophageal reflux disease) HTN (hypertension) Kidney stones Osteoarthritis PAF (paroxysmal atrial fibrillation) (~03/2013) Parkinson's disease (~04/2019) Right femoral fracture (~2008) Right humeral fracture (06/22/22) Right tibial fracture (~2006) Sleep apnea Small bowel obstruction (~2017) Tinnitus Surgical History History of arthroplasty of right hip History of bariatric surgery (~1999) History of bilateral cataract extraction History of open reduction and internal fixation (ORIF) procedure History of total hysterectomy with bilateral salpingo-oophorectomy (BSO) 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 She has had some issue with pain control, though we are addressing it today. Plan for discharge to home tomorrow morning with caregiver. Needs medications sent to pharmacy once adequate pain control is reached. Quality VTE Deep Vein Thrombosis/Pulmonary Embolism Present on Admission: No
[2022-08-06] MEDS: RASAGILINE 1 MG 1 EACH PO (11:00)
[2022-08-06] MEDS: OXYCODONE IR 10 MG TABLET PO ×3 (11:31→21:20)
[2022-08-06] MEDS: POLYVINYL ALCOHOL DROPS 1 DROPS EYE-BOTH (11:43)
[2022-08-06 13:00] VITALS: BP 114/53; PULSE 103; RESP 14; TEMP 37.2; O2SAT 95
--- NOTE | 2022-08-06 14:50 | PT.IPTN ---
Current Diagnoses Primary osteoarthritis, right shoulder (08/05/22) Surgery Performed Operation Date: 08/05/22 10:45 Actual Procedures p Reverse Total Shoulder Arthroplasty w/ Biceps Tenodesis(Right) - Bryce Knight MD Physical Therapy Treatment Note M2 PT-IP Current Condition Start: 08/05/22 14:40 Freq: NEEDED Status: Active Protocol: Document 08/06/22 14:44 LRN (Rec: 08/06/22 15:21 LRN [id number]) Physical Therapy Current Condition Current Condition Evaluation Date 08/06/22 Treatment Diagnosis R Proximal Humerus fx 06/22/22, s/p PO Day1 Reverse R TSA w/ Biceps tenodesis Onset Date 08/05/22 M3 PT-IP Subjective Start: 08/05/22 14:40 Freq: NEEDED Status: Active Protocol: Document 08/06/22 16:16 TS (Rec: 08/06/22 16:43 TS [id number]) Subjective Physical Therapy Visit Type Type Treatment Note Visit Start Time 14:50 Visit Stop Time 15:15 Total Visit Minutes 25 Physical Therapy Visit Comments Patient Comments Pt reports she would like to go home, has mutiple people to help her at home, friend to help her up stairs, would like [facility] or another organization to assist with bathing and HHPT. M4 PT-IP Mobility and Gait Start: 08/05/22 14:40 Freq: NEEDED Status: Active Protocol: Document 08/06/22 16:16 TS (Rec: 08/06/22 16:43 TS [id number]) PT-Bed Mobility Assessment Supine to Sit Supine to Sit Standby Assistance Sit to Supine Sit to Supine Standby Assistance,1 Person Assistance Scooting Scooting to Edge of Bed Independent Scooting Up and Down in Bed Standby Assistance PT-Transfer Assessment Sit to and From Stand Sit to and from Stand Minimal Assistance Equipment Transfer Assistive Device Bed Rail,Gait Belt Orthotic/Prosthetic Devices or Brace: No Comments Mobility Comments Pt found resting in bed, agreeable to PT session. Pt performed supine to sit SBA, she scooted EOB SBA. She required heandheld assist into standing, static standing with no AD, trasnferred cane into LUE. Pt ambulated around room ~50' SBA, some swaying, no LOB. She performed stairs x4 lateral stepping SBA with counter for support. Stairs x6 SBA with LUE counter support, no LOB. Gait Assessment Gait Gait Assistance Required: Standby Assistance Distance (Feet) 50 Able to Maintain Weight Bearing Status Yes During Gait Assistive Devices Assistive Device Gait Belt Orthotic/Prosthetic Devices or Brace: No Gait Deviations General Gait Pattern Decreased Stride Length, Decreased Feet Clearance, Festinating,Flexed Trunk, Narrow Based Gait Factors Limiting Gait Function Factors Limiting Gait Function Decreased Activity Tolerance, Pain,Poor Balance Comments Gait Comments Pt ambulates with step thru gait and cane in LUE. She had some swaying with ambulation but no LOB, furniture surfs at times on bed rails. Stair Climbing Assessment Evaluation Level of Assist On Stairs Standby Assistance Devices Stair Climbing Assistive Devices Straight Cane Technique/Endurance Stair Climbing Direction Ascend and Descend Stair Climbing Technique Step to Step Number of Steps Climbed 10 Comments Stair Climbing Comments See mobility comments. PT-Balance Assessment Sitting Balance and Reactions Static Sitting Balance Ability Good Dynamic Sitting Balance Ability Good Standing Balance and Reactions Static Standing Balance Ability Fair Dynamic Standing Balance Ability Fair M5 PT-IP Objective Assessments Start: 08/05/22 14:40 Freq: NEEDED Status: Active Protocol: Document 08/06/22 14:44 LRN (Rec: 08/06/22 15:21 LRN [id number]) Orientation Orientation/Cognition Level of Alertness Alert Orientation Name,Month,Place,Situation Language Function Ability No Deficits Noted Safety Awareness Understands Safety Issues Memory Description No Deficits Noted Gross Range of Motion Upper Extremity ROM Assessment Right Impaired Impairments R arm in sling appropriate for S/P R TSA. R UE: Forearm supination ~10 deg's, pronation normal, Elbow flexion limited 20%. Lower Extremity ROM Assessment Right Impaired Impairments R knee flexion limited to 90 deg's. Strength Upper Extremity Strength Assessment Right Impaired Lower Extremity Strength Assessment Left Impaired Comments Strength Comments L UE/LE strength is generally 5/5. R UE not appropriate for testing due to s/p R TSA. R elbow, wrist and hand mobility is 2+/5. M6 PT-IP Treatment Start: 08/05/22 14:40 Freq: NEEDED Status: Active Protocol: Document 08/06/22 16:16 TS (Rec: 08/06/22 16:43 TS [id number]) Physical Therapy Treatment Education Education Provided Precautions Other Treatments Other Treatment Performed Educated pt on post op ex: elbow flex/ext, forearm sup/ pron, wrist flex/ext, hand open/close. M7 PT-IP Assessment and Plan Start: 08/05/22 14:40 Freq: NEEDED Status: Active Protocol: Document 08/06/22 16:16 TS (Rec: 08/06/22 16:43 TS [id number]) PT Summary Assessment and Plan Potential Rehabilitation Potential Good Status of Condition at Evaluation Evolving Summary Impairments Pain,ROM,Strength,Balance,Bed Mobility,Transfers,Gait Assessment Summary Pt progressed all bed mobility to SBA/Ind this session. She required handheld asssist into standing due to pain when in R sholder when trying to stand with cane. She progressed her ambulation to 50' in room SBA , some swaying but no LOB. She performed stairs x10 SBA with UE support on counter, no LOB . PT is recommending she return home with assist. She has mutliple people who will be assisting her throughout the day with chores, she has a bedside commode she says she can trasnfer herself to, she would like PT and [employer] or another organization to help her wth bathing. Goals Bed Mobility Goal Independent Transfer Goal Independent Gait Goal Independent Gait Distance 75-100' Days to Meet Goals 2 Frequency of Treatment Frequency Of Treatment Twice a Day Treatment Plan Physical Therapy Treatment Plan Bed Mobility Training,Transfer Training,Gait Training,Post Op Education,Discharge Planning,Hot or Cold Pack Other Recommendations and Next Treatment continue gait with cane, Focus stairs and bed mobility. Precautions Shoulder Precautions Sling,No External Rotation Recommendations To Nursing Amount of Assist Needed Standby Assistance Discharge Recommendations PT Discharge Recommendations Home with Assistance,SNF Rehab Transportation Needs at Discharge Private Vehicle
[2022-08-06] MEDS: BENZOCAINE/MENTHOL 1 LOZ PKT 1 EACH PO ×2 (17:00→21:22)
[2022-08-06 21:25] VITALS: BP 120/52; PULSE 86; RESP 18; TEMP 36.8; O2SAT 93
[2022-08-07 01:35] VITALS: BP 103/52; PULSE 87; RESP 18; TEMP 36.3; O2SAT 94
[2022-08-07] MEDS: OXYCODONE IR 10 MG TABLET PO ×2 (01:36→06:42)
[2022-08-07 04:53] VITALS: BP 107/62; PULSE 87; RESP 18; TEMP 36.5; O2SAT 97
[2022-08-07 09:10] VITALS: BP 103/55; PULSE 104; RESP 17; TEMP 36.1; O2SAT 97
[2022-08-07] MEDS: CARBIDOPA-LEVODOPA 25/100 TABLET 1 EACH PO (09:20)
[2022-08-07] MEDS: AMANTADINE 100 MG CAPSULE PO (09:20)
[2022-08-07] MEDS: RASAGILINE 1 MG 1 EACH PO (09:25)
--- NOTE | 2022-08-07 10:59 | PM.DS.1 ---
History of Present Illness History of Present Illness Date Patient Seen: 08/07/22 Time Patient Seen: 10:59 Chief complaint: Right Reverse TSA w/Bicep Tenodesis Narrative: Operative Date/Time/Diagnoses Date of procedure: 08/05/22 Time of procedure: 13:05 Pre-op diagnosis: Right proximal humerus fracture with pre-existing osteoarthritis Post-op diagnosis: same Procedure & Clinicians Procedure: Reverse total shoulder arthroplasty for right proximal humerus fracture Same procedure as scheduled: Yes Indications: Indications:? This is a a 77-year-old female who has a right proximal humerus fracture and pre-existing osteoarthritis.? Symptoms prior to her fracture have been present for years, insidious onset.? Patient has failed conservative therapy including injections, physical therapy, anti-inflammatories and activity modification.? After extensive discussion in clinic, they wished to go forward with surgery.? Risks and benefits were described including the risk of infection, bleeding, damage to internal structures including nerves.? We also discussed the risk of failure of surgery and the need for revision surgery as well as the risk of anesthesia.? The patient expressed understanding with these risks and wished to go forward with surgery. Surgeon: Bryce Knight Grader Meat: Renata Alonso Anesthesia Type: General Operative Notes Findings: Proximal humerus fracture at the surgical neck.? Some osteopenia and posterior glenoid wear Closure Type: primary Prosthetic devices, grafts, tissues, transplants, or devices: Tornier implants Base plate:? standard 25 mm, 0 offset Glenosphere:? Standard 36 mm Stem:? Flex, size 2, set at angle B Tray:? High offset, set at 12:00 p.m. Poly:? 0 Blood products transfused: none Discharge Providers Provider Date of admission: 08/05/22 09:03 Discharge Date: 08/07/22 Primary care physician: Dave Ralph MD Consults: 08/05/22 06:00 Consult to Anesthesiology Routine Comment: Consulting Provider: Anesthesiologist Reason for consultation: Regional block for post operative pain control 08/05/22 13:22 Consult to Discharge Planning Routine Comment: Consult to Physical Therapy Evaluate & Treat Comment: Physician Instructions: Evaluate and Treat Discharge provider: Lexie Lizarraga PA-C Summary Hospital Course Discharge Diagnosis: Right proximal humerus fracture s/p right reverse total shoulder arthroplasty Hospital Course: Ms Tesfaye's hospital course was unremarkable. She needed assistance at home due to balance issues, and this wasn't available to her until POD# 2. On the morning of POD# 2, she was feeling well and wanted to go home. She was eating and voiding without difficulty and her pain was well-controlled with oral medication. She has a h/o of what sounds like paroxysmal a fib and has been on Eliquis and Xarelto in the past, but these were stopped in June. Her liquefaction and regasification helper, Dr Sánchez, is evaluating her for possible Watchman placement. She has a h/o duodenal switch and cannot take NSAIDs; however, she should be fine with EC ASA BID for VTE prophylaxis. Exam Vital Signs (past 8 hours): - 08/07/22 04:53 08/07/22 09:10 Temperature 97.7 F 97 F L Pulse Rate 87 104 H Respiratory Rate 18 17 Blood Pressure 107/62 103/55 L Pulse Oximetry 97 97 Oxygen Flow Rate 0 0 Oxygen Delivery Method Room Air Oxygen Flow Rate 0 Narrative Exam Narrative: 5/5 hospice case manager strength, hand intrinsics; 3/5 biceps and triceps, hesitancy d/t pain. Sensation to light touch intact throughout RUE, brisk capillary refill. Aquacel dressing CDI. Objective Labs 08/06/22 06:35 [facility] Medical History Abdominal hernia Afib Compression fracture of L1 vertebra Diabetes Easy bruisability GERD (gastroesophageal reflux disease) HTN (hypertension) Kidney stones Osteoarthritis PAF (paroxysmal atrial fibrillation) (~03/2013) Parkinson's disease (~04/2019) Right femoral fracture (~2008) Right humeral fracture (06/22/22) Right tibial fracture (~2006) Sleep apnea Small bowel obstruction (~2017) Tinnitus Surgical History History of arthroplasty of right hip History of bariatric surgery (~1999) History of bilateral cataract extraction History of open reduction and internal fixation (ORIF) procedure History of total hysterectomy with bilateral salpingo-oophorectomy (BSO) History of total replacement of left shoulder joint (06/18/19) Hx of appendectomy Hx of cholecystectomy Hx of lithotripsy Hx of oral surgery Hx of tonsillectomy Social History household members: none Smoking Status: Former smoker alcohol intake: former Discharge Assessment & Plan Assessment and Plan Assessment: Right proximal humerus fracture s/p right reverse total shoulder arthroplasty Plan of Treatment: Discharge home. ASA 81mg BID x 4 weeks for VTE prophylaxis, multimodal pain control, follow up in office in 2 weeks. Discharge Plan Discharge Plan Patient Disposition: Home Provider Discharge Comment: Discharge to home on 08/07/22 once pain is controlled Discharge orders & Medications Prescriptions: New oxycodone 5 mg Tablet 5 mg PO Q4-6H PRN (Reason: Pain, Moderate (4-6)) Qty: 60 0RF Rx Instructions: 1-2 tabs (5-10mg) q 4-6 hrs PRN moderate to severe pain aspirin 81 mg tablet,delayed release (DR/EC) 81 mg PO BID Qty: 60 0RF Continued carbidopa-levodopa 25-100 mg Tablet 1 tab PO TID lisinopril 10 mg Tablet 5 mg PO QAM amantadine HCl 100 mg Tablet 100 mg PO TID rasagiline [Azilect] 1 mg Tablet 1 mg PO DAILY acetaminophen 500 mg Tablet 1,000 mg PO Q6H PRN (Reason: pain) Follow up/Referrals: Dave Ralph MD [Primary Care Provider] - Bryce Knight MD [Physician] - As previously scheduled (Follow up w/ Renata Alonso PA-C, on 08/20/2022 @ 9:00 am at [facility] office in [place].) Diet/Activity/Treatments Diet: Diet as Tolerated Activity: Sling to remain on for 6 weeks, including while sleeping. No external rotation past neutral for 6 weeks. Okay for sling to come off for showers and hygiene. Cold/Heat Therapy: Ice to shoulder as needed for pain. Skin/Wound/Dressing Care Report to your healthcare provider any signs of infection, such as:: chills, fever, night sweats, unusual drainage and unusual redness Dressing: May shower. Leave Aquacel dressing in place until follow up in office. No bathing or otherwise soaking incision. Call the office if the dressing becomes saturated inside. Visit Report/Discharge Packet Instructions: DI for Shoulder Replacement, DI for Prescription Opioid Use Stand Alone Forms: Patient Portal/API, Stroke Signs & Symptoms, Surgery Discharge Discharge Data Primary Care Provider: Dave Ralph VTE Deep Vein Thrombosis/Pulmonary Embolism Present on Admission: No
[2022-08-07 12:10] VITALS: BP 118/54; PULSE 95; RESP 16; TEMP 36.3; O2SAT 94
[2022-08-07] MEDS: OXYCODONE IR 5 MG TABLET PO (13:09)
[2022-08-07] MEDS: ACETAMINOPHEN 325 MG TABLET 975 MG PO (13:09)
--- NOTE | 2022-08-07 14:45 | CM.DPNOTE ---
Addendum entered by DARION Foster 08/07/22 15:06: ADD: Patient cleared by therapies and by Ortho team for this plan JW Original Note: DC Note DC home w/friend today and [facility] services, patient agreeable to plan. Friend to transport Updated Terri at [facility] and faxed DC Summary Plan: DC home w/friend and [facility] JW
== END 2022-08-07 14:08 | disposition home health service (06) | DRG 483 ==
PROVIDERS: Admitting Provider Orthopaedic Surgery; PCP Internal Medicine; Referring Provider Orthopaedic Surgery; Visit Provider Orthopaedic Surgery
PROC: 0RRJ00Z Replacement of Right Shoulder Joint with Reverse Ball and Socket Synthetic Substitute, Open Approach (ICD-10-PCS; CPT 23472; principal; 2022-08-05 10:45)
DX: S42.291A Other displaced fracture of upper end of right humerus, initial encounter for closed fracture (principal); M19.011 Primary osteoarthritis, right shoulder; M85.811 Other specified disorders of bone density and structure, right shoulder; G20 Parkinson's disease; I10 Essential (primary) hypertension; W18.30XA Fall on same level, unspecified, initial encounter; Z87.891 Personal history of nicotine dependence; Z20.822 Contact with and (suspected) exposure to COVID-19
CPT/HCPCS: 36415; 64450; 73030; 85027; 87635; 97162; 97530; C1776; C9803; J0171; J0690; J1100; J1170; J2250; J2405; J2704; J3010